=== PATIENT | female | born 1960 | race Caucasian/White ===

== ENCOUNTER 2017-04-11 18:30 | Emergency (ER) | payer OTHER ==
[~2017-04-11 18:30] MED LIST: ADULT LOW DOSE81 M1 PO; ADVIL200 MG PO; AMBIEN5 M1 PO; ATENOLOL50 M1 PO; AUGMENTIN 875-11 TAB PO; BACTRIM DS1 TA1 PO; CATAFLAM50 MG PO; CIPRO500 MG PO; DARVOCET-N 1001 TAB PO; DIFLUCAN100 MG PO; DOXY-LEMMON100 M PO; EQL FISH OIL 1,1 CAP; EXCEDRIN EXTRA1 EACH PO; FLEXERIL10 MG PO; GLUCOPHAGE500 M3 PO; KEFLEX500 MG PO; LIPITOR40 M1 PO; LORTAB 5/500 TA1 TAB PO; MACROBID 100 M100 M1 PO; MOTRIN200 MG/TA1 JT; MOTRIN800 MG PO; NORCO 5-325 TA1 EACH PO; NORCO 5/325 TAB1 TAB PO; NORCO 5/3251 TAB PO; PEN-VEE K500 MG PO; PENICILLIN V P500 M1 PO; PERCOCET 5-3251 EACH PO; PERCOCET 5/3251 TAB PO; PLAVIX75 M1 PO; PRILOSEC OTC20 MG; PRILOSEC20 MG PO; PRILOSEC40 M1 PO; PYRIDIUM200 MG PO; SKELAXIN800 MG; TENORMIN50 M1 PO; VICODIN 5/500 T1 TAB PO; ZESTRIL10 M3 PO; ZITHROMAX250MG Z-PAK PO; ZOCOR; ZOCOR40 M1 PO; ZOCOR40 MG PO
== END 2017-04-11 20:27 ==
LOC: EDMED 18:30
DX: M19.90 Unspecified osteoarthritis, unspecified site (principal); I10 Essential (primary) hypertension; E11.9 Type 2 diabetes mellitus without complications; Z98.890 Other specified postprocedural states; Z87.891 Personal history of nicotine dependence; Z95.5 Presence of coronary angioplasty implant and graft; Z87.442 Personal history of urinary calculi; Z79.899 Other long term (current) drug therapy; Z79.82 Long term (current) use of aspirin